=== PATIENT | female | born 1990 ===

== ENCOUNTER 2020-01-09 12:09 | Inpatient (IN) | payer OTHER ==
[~2020-01-09] VITALS: Ht 162.6 cm; Wt 89.8 kg
[2020-01-27] MEDS ORDERED: PRENATAL TABLE1 EACH PO (11:27)
== END 2020-01-29 19:40 | disposition home or self-care (01) | DRG 807 ==
LOC: EDBD 01-27 10:51 → LDR 01-27 10:51 → OB/GYN 01-27 14:28
PROVIDERS: ADMIT Obstetrics & Gynecology
PROC: 10E0XZZ Delivery of Products of Conception, External Approach (ICD-10-PCS; principal; 2020-01-28)
PROC: 0UQGXZZ Repair Vagina, External Approach (ICD-10-PCS; 2020-01-28)
PROC: 10907ZC Drainage of Amniotic Fluid, Therapeutic from Products of Conception, Via Natural or Artificial Opening (ICD-10-PCS; 2020-01-28)
PROC: 4A1HXCZ Monitoring of Products of Conception, Cardiac Rate, External Approach (ICD-10-PCS; 2020-01-28)
DX: O71.4 Obstetric high vaginal laceration alone (principal); Z37.0 Single live birth; Z3A.39 39 weeks gestation of pregnancy